=== PATIENT | female | born 1940 | race Caucasian/White ===

== ENCOUNTER → 2016-04-14 | Outpatient (CLI) | payer OTHER ==
[~2016-04-14] MED LIST: ALLERGY RELIEF180 MG; ASPIRIN81 M2; CALCIUM 600 +1 EAC1; CENTRUM SILVER1 EAC4; CITRUCEL CAPLET1 TA1; CLONAZEPAM 0.50.5 M1; CRANBERRY TABL1 EACH; FISH OIL 1,001000 M2; FLOVENT HFA 4444 MCG; HYDROCHLOROTHIA25 M2; LEVOTHYROXINE0.2 M1; METHYLPHENIDATE10 MG; SIMVASTATIN40 MG; VESICARE 5 MG TA5 MG; VITAMINC500; ZOLOFT50 MG
== END ==
LOC: RAD 01:02
DX: Z12.31 Encounter for screening mammogram for malignant neoplasm of breast (principal)

== ENCOUNTER → 2017-04-14 | Outpatient (CLI) | payer OTHER ==
[~2017-04-14] MED LIST changes: -ALLERGY RELIEF180 MG; +ALLERGY RELIEF180 MG PO; -ASPIRIN81 M2; +ASPIRIN81 M2 PO; -CALCIUM 600 +1 EAC1; +CALCIUM 600 +1 EAC1 PO; -CENTRUM SILVER1 EAC4; +CENTRUM SILVER1 EAC4 PO; -CRANBERRY TABL1 EACH; +CRANBERRY TABL1 EACH PO; +DETROL1 MG PO; -FISH OIL 1,001000 M2; +FISH OIL 1,001000 M2 PO; -FLOVENT HFA 4444 MCG; +FLOVENT HFA 4444 MCG INH; -SIMVASTATIN40 MG; +SIMVASTATIN40 MG PO; +SYNTHROID50 MCG PO; -VITAMINC500; +VITAMINC500 PO; -ZOLOFT50 MG; +ZOLOFT50 MG PO
== END ==
LOC: RAD 03:42
DX: Z12.31 Encounter for screening mammogram for malignant neoplasm of breast (principal)

== ENCOUNTER 2017-06-26 09:39 | Outpatient (CLI) | payer OTHER ==
[~2017-06-26] VITALS: Ht 154.9 cm; Wt 73.5 kg
--- NOTE | ~2017-06-26 | D ---
[facility] [place] [address] DISCHARGE SUMMARY Name: NEELAM MCFARLAND Room #: [facility]ITAL[facility]ink[facility]#: [id number] Admission: 06/26/17 Attend Phys: Mainor Navarro MD Discharge: 06/27/17 Date of : 38 Report #: [id number] THIS REPORT FOR: //name// CC: SAM RAY FAM unknown [facility] DATE OF SERVICE: 06/27/2017 HOSPITAL COURSE: The patient is a 77-year-old female, generally followed by Dr. Navarro. She was admitted yesterday for a pacemaker placement, which was a [employer] dual chamber. She is in mild nonischemic cardiomyopathy, PVC, right bundle branch block with concordance and significant burden of PVCs, hypertension and diabetes. She subsequently underwent pacemaker placement, which was a [employer] dual chamber. Normal device function normal, no programming changes, no episodes were noted. It was interrogated just now by the device company. We are awaiting the chest x-ray. She is up and ambulating. Her arm is in a splint and she will follow the post-pacemaker protocol, minimal usage of the left upper extremity, nothing above the head. She has followup on 07/01/2017 in the office for wound check and pacemaker interrogation. She is to call with any issues. DISCHARGE DIAGNOSES: 1. Sick sinus syndrome. Permanent pacemaker placement, dual chamber [employer] device, appropriately functioning. 2. Mild cardiomyopathy. 3. Hypertension. 4. Diabetes. We will review once the chest x-ray is obtained. There is no evidence of pneumothorax. Okay to discharge. <ELECTRONICALLY SIGNED> By: Marty Heredia MD, FACC 07/07/17 1302 [id number] Marty Heredia MD, FACC /nt
--- NOTE | ~2017-06-26 | P ---
[facility] [place] [address] PROCEDURE REPORT Name: NEELAM MCFARLAND Room #: [facility] [id number] Admission: 06/26/17 Attend Phys: Mainor Navarro MD Discharge: 06/27/17 Date of : 38 Report #: [id number] THIS REPORT FOR: //name// CC: SAM RAY FAM unknown Mainor Gaffney DATE OF SERVICE: 06/26/2017 PROCEDURE PERFORMED: Pacemaker implantation. PREOPERATIVE DIAGNOSIS: Symptomatic bradycardia. POSTOPERATIVE DIAGNOSIS: Symptomatic bradycardia. HISTORY OF PRESENT ILLNESS: The patient is a 77-year-old with history of a nonischemic cardiomyopathy and symptomatic PVCs, who has been on beta blockers and amiodarone therapy, who now has sick sinus syndrome with symptomatic bradycardia and sinus pauses. She requires continuation of beta blockers and amiodarone for her cardiomyopathy and PVCs and therefore is here for dual chamber pacemaker implantation. ANESTHESIA: The patient underwent MAC anesthesia with no anesthesia related complications. PROCEDURE: The patient underwent informed consent where we discussed the details of the procedure including the risks, which include, but not limited to bleeding, infection, vascular damage, cardiac perforation and pneumothorax. She understood these risks and is willing to proceed. As such, she was brought to the EP laboratory in a fasting and sedated state and prepped and draped in a sterile fashion. She underwent a venography showing patency of the left axillary vein and received IV antibiotics prior to initiation of the procedure. Next, I injected lidocaine below the level of the left clavicle, incision was made and a pocket was created over the prepectoral fascia and access was obtained twice to the left axillary vein using the extrathoracic approach with the sheaths positioned using the modified Seldinger technique. Next, leads were positioned to the right ventricular apex and into the right atrial appendage, both with adequate pacing and sensing thresholds. The leads were sutured to the prepectoral fascia and the device was connected. The pocket was irrigated with vancomycin and it was then closed in 3 layers using 2-0 for the deep layer, 3-0 for the middle layer and 4-0 for the subcuticular layer. Steri-Strips and dressing were applied. The patient awoke neurologically and hemodynamically intact with no complications and no significant bleeding. The implanted pacemaker was a [employer] model #FN8733, serial #[id number]. [address] [address] PROCEDURE REPORT Name: NEELAM MCFARLAND Room #: DEP AIDE Soto#: [id number] Admission: 06/26/17 Attend Phys: Mainor Navarro MD Discharge: 06/27/17 Date of : 38 Report #: [id number] The atrial lead was a [employer], model #2088TC, 52 cm, serial #[id number]. This lead demonstrated a P-wave of 3.6 millivolts, pacing impedance of 450 ohms, the pacing threshold of 1.25 volts at 0.4 milliseconds. The RV lead was a [employer] model #2088TC, 58 cm, serial #[id number]. This lead demonstrated an R-wave of 8.7 millivolts, pacing impedance of 580 ohms and a pacing threshold of 0.75 volts at 0.4 milliseconds. The device was programmed to the DDDR 60-130 mode. CONCLUSIONS: 1. Successful dual-chamber pacemaker implantation. 2. Satisfactory atrial and ventricular pacing and sensing thresholds. <ELECTRONICALLY SIGNED> By: Mainor Navarro MD 07/09/17 1140 [id number] Mainor Navarro MD /nt
[~2017-06-26 09:39] MED LIST changes: -DETROL1 MG PO; -SYNTHROID50 MCG PO
[2017-06-26 10:59] LABS: HEMATOCRIT 40.8 % (37.0-47.0); HEMOGLOBIN 13.5 gm/dL (12.0-15.0); MCH 29.2 pg (26.0-34.0); MCV 88.4 fL (80.0-100.0); RBC 4.61 mil/uL (4.20-5.00); RDW 15.1 % (10.5-14.5); WBC 7.3 thou/uL (4.0-11.0)
[2017-06-26 11:15] LABS: APTT 26.1 Seconds (24.5-32.8); CALCIUM 9.8 mg/dL (8.5-10.1); INR 1.1; PROTIME 10.9 Seconds (9.3-11.4)
[2017-06-26 11:19] LABS: ALBUMIN 3.9 g/dL (3.4-5.0); TOTAL BILIRUBIN 0.7 mg/dL (<0.1-1.0); TOTAL PROTEIN 7.3 g/dL (6.4-8.2)
[2017-06-26] MEDS ORDERED: SYNTHROID50 MCG PO (11:52)
[2017-06-26] MEDS ORDERED: DETROL1 MG PO (11:55)
[2017-06-26 11:56] VITALS: BP 169/69
[2017-06-26 21:37] VITALS: BP 157/78
[2017-06-27 00:41] VITALS: BP 150/76
[2017-06-27 04:38] VITALS: BP 133/67
[2017-06-27 07:18] VITALS: BP 97/54
[2017-06-27 09:50] VITALS: BP 97/54
== END 2017-06-27 10:53 | disposition home or self-care (01) ==
LOC: CATH 09:39 → 2N 09:39 → CATH 10:34 → 2N 17:50 → CATH 06-27 10:53
PROVIDERS: Internal Medicine Cardiovascular Disease
DX: I49.5 Sick sinus syndrome (principal); I10 Essential (primary) hypertension; E78.5 Hyperlipidemia, unspecified; J45.909 Unspecified asthma, uncomplicated; Z90.710 Acquired absence of both cervix and uterus; Z90.49 Acquired absence of other specified parts of digestive tract; Z98.41 Cataract extraction status, right eye; Z98.42 Cataract extraction status, left eye; Z96.1 Presence of intraocular lens; Z98.890 Other specified postprocedural states; Z88.0 Allergy status to penicillin; Z88.2 Allergy status to sulfonamides; Z79.82 Long term (current) use of aspirin; Z79.01 Long term (current) use of anticoagulants
CPT/HCPCS: 10081; 62110; 62900; 70005

== ENCOUNTER → 2018-04-15 | Outpatient (CLI) | payer OTHER ==
[~2018-04-15] MED LIST changes: +DETROL1 MG PO; +SYNTHROID50 MCG PO
== END ==
LOC: RAD 13:30
DX: Z12.31 Encounter for screening mammogram for malignant neoplasm of breast (principal)

== ENCOUNTER → 2019-06-06 | Outpatient (CLI) | payer OTHER | LOC: BC 11:20 | DX: Z12.31 Encounter for screening mammogram for malignant neoplasm of breast (principal) ==

== ENCOUNTER → 2019-10-31 | Outpatient (CLI) | payer OTHER | LOC: SJCVCIMAG 10-17 14:36 | PROVIDERS: ATTEND Internal Medicine | DX: Z45.018 Encounter for adjustment and management of other part of cardiac pacemaker (principal); I08.8 Other rheumatic multiple valve diseases; R94.31 Abnormal electrocardiogram [ECG] [EKG]; I42.0 Dilated cardiomyopathy; E78.5 Hyperlipidemia, unspecified; E11.9 Type 2 diabetes mellitus without complications; J45.909 Unspecified asthma, uncomplicated; M81.0 Age-related osteoporosis without current pathological fracture; Z79.82 Long term (current) use of aspirin; Z79.899 Other long term (current) drug therapy; Z82.49 Family history of ischemic heart disease and other diseases of the circulatory system; Z79.4 Long term (current) use of insulin ==

== ENCOUNTER → 2019-11-08 | Outpatient (CLI) | payer OTHER ==
[2019-11-08 13:19] LABS: CALCIUM 9.6 mg/dL (8.5-10.1); CREATININE 0.9 mg/dL (0.6-1.0); POTASSIUM 3.7 mmol/L (3.5-5.1)
== END ==
LOC: CAT 11:53
PROVIDERS: ATTEND Nurse Practitioner
DX: I25.10 Atherosclerotic heart disease of native coronary artery without angina pectoris (principal); K57.30 Diverticulosis of large intestine without perforation or abscess without bleeding; Z95.0 Presence of cardiac pacemaker

== ENCOUNTER → 2020-01-02 | Outpatient (CLI) | payer OTHER | LOC: CAT 11:34 | PROVIDERS: ATTEND Family Medicine | DX: M51.27 Other intervertebral disc displacement, lumbosacral region (principal); M48.061 Spinal stenosis, lumbar region without neurogenic claudication; M25.78 Osteophyte, vertebrae; M47.816 Spondylosis without myelopathy or radiculopathy, lumbar region ==

== ENCOUNTER → 2020-03-02 | Outpatient (CLI) | payer OTHER ==
[~2020-03-02] VITALS: Ht 160 cm; Wt 59.9 kg
[~2020-03-02] MED LIST changes: +COREG3.125 MG PO; +LEVOTHYROXINE150 MC1 PO; +PACERONE 200 M200 M1 PO; +ROSUVASTATIN CA20 MG PO; -SYNTHROID50 MCG PO; +TYLENOL325 M1 PO
[2020-03-02 10:39] VITALS: BP 142/71
--- NOTE | 2020-03-02 11:04 | NUR ---
Pain Clinic Assessment: 1. History of Osteoarthritis: DENIES History of Rheumatoid Arthritis: DENIES 2. Height: 5 ft. 3 in. 160.0 cm. Weight: 132.0 lb. oz. 59.875 kg. Patient's BMI: 23.4 3. Vital Signs: BP: 142/71 Pulse: 74 Resp: 16 Temp: 02 Sat: 97 ECG Mon: 4. Pain Intensity: 6 5. Fall Risk: Dizziness: Y Needs help standing or walking: Y Fallen in the last 3 months: Y Fall risk comments: 6. Patient on Blood Thinner: None 7. History of Hypertension: Y 8. Opioid Therapy greater than 6 weeks: N Opiate Contract Signed: 9. Risk Assessment Tool Provided: 10. Functional Assessment Tool: 11. Recreational Drug Use: Never Drug Type: Tobacco Use: Never Smoker Tobacco Type: Amount or Packs/day: How Many Years: Alcohol Use: No Frequency: Quant:
== END | disposition home or self-care (01) ==
LOC: PAIN 06:50
PROVIDERS: ATTEND Anesthesiology Pain Medicine
DX: M54.16 Radiculopathy, lumbar region (principal); M48.061 Spinal stenosis, lumbar region without neurogenic claudication; I10 Essential (primary) hypertension; E11.9 Type 2 diabetes mellitus without complications; E78.5 Hyperlipidemia, unspecified; J45.909 Unspecified asthma, uncomplicated; M81.0 Age-related osteoporosis without current pathological fracture; Z98.890 Other specified postprocedural states; Z79.899 Other long term (current) drug therapy; Z90.710 Acquired absence of both cervix and uterus; Z95.0 Presence of cardiac pacemaker; Z90.49 Acquired absence of other specified parts of digestive tract; Z88.0 Allergy status to penicillin; Z88.2 Allergy status to sulfonamides

== ENCOUNTER → 2020-05-09 | Outpatient (CLI) | payer OTHER | LOC: SJCVC 13:22 | PROVIDERS: ATTEND Internal Medicine | DX: R94.31 Abnormal electrocardiogram [ECG] [EKG] (principal); I42.0 Dilated cardiomyopathy; I49.3 Ventricular premature depolarization; E78.5 Hyperlipidemia, unspecified; E11.9 Type 2 diabetes mellitus without complications; R00.2 Palpitations; M81.0 Age-related osteoporosis without current pathological fracture; Z90.49 Acquired absence of other specified parts of digestive tract; Z90.710 Acquired absence of both cervix and uterus; Z95.0 Presence of cardiac pacemaker; Z88.8 Allergy status to other drugs, medicaments and biological substances; Z79.4 Long term (current) use of insulin; Z79.82 Long term (current) use of aspirin; Z79.899 Other long term (current) drug therapy; Z82.49 Family history of ischemic heart disease and other diseases of the circulatory system ==

== ENCOUNTER → 2020-05-18 | Outpatient (CLI) | payer OTHER ==
[~2020-05-18] VITALS: Ht 160 cm; Wt 59.9 kg
[~2020-05-18] MED LIST changes: +NEURONTIN 300M300 M2 PO
[2020-05-18 12:56] VITALS: BP 155/84
--- NOTE | 2020-05-18 13:04 | NUR ---
Pain Clinic Assessment: 1. History of Osteoarthritis: DENIES History of Rheumatoid Arthritis: DENIES 2. Height: 5 ft. 3 in. 160.0 cm. Weight: 132.0 lb. oz. 59.875 kg. Patient's BMI: 23.4 3. Vital Signs: BP: 155/84 Pulse: 72 Resp: 16 Temp: 02 Sat: 99 ECG Mon: 4. Pain Intensity: 4-5 5. Fall Risk: Dizziness: Y Needs help standing or walking: Y Fallen in the last 3 months: Y Fall risk comments: HAS HAD OVER 6 FALLS IN A WEEK DUE TO SYNCOPE. 6. Patient on Blood Thinner: None 7. History of Hypertension: Y 8. Opioid Therapy greater than 6 weeks: N Opiate Contract Signed: 9. Risk Assessment Tool Provided: 2-LOW RISK 10. Functional Assessment Tool: 11. Recreational Drug Use: Never Drug Type: Tobacco Use: Never Smoker Tobacco Type: Amount or Packs/day: How Many Years: Alcohol Use: No Frequency: Quant:
== END ==
LOC: PAIN 05-11 09:34
PROVIDERS: ATTEND Anesthesiology Pain Medicine
DX: M54.16 Radiculopathy, lumbar region (principal); J45.909 Unspecified asthma, uncomplicated; E78.5 Hyperlipidemia, unspecified; I10 Essential (primary) hypertension; M81.0 Age-related osteoporosis without current pathological fracture; I49.3 Ventricular premature depolarization; Z95.0 Presence of cardiac pacemaker

== ENCOUNTER → 2020-06-25 | Outpatient (CLI) | payer OTHER | LOC: BC 12:51 | PROVIDERS: ATTEND Family Medicine | DX: Z12.31 Encounter for screening mammogram for malignant neoplasm of breast (principal) ==

== ENCOUNTER → 2020-11-06 | Outpatient (CLI) | payer OTHER ==
[~2020-11-06] MED LIST changes: +APAP W/CODEINE1 TA2 PO
== END ==
LOC: SJCVCIMAG 09:35
PROVIDERS: ATTEND Internal Medicine
DX: I08.0 Rheumatic disorders of both mitral and aortic valves (principal); I42.0 Dilated cardiomyopathy; I45.10 Unspecified right bundle-branch block; R94.31 Abnormal electrocardiogram [ECG] [EKG]; I11.9 Hypertensive heart disease without heart failure; I77.89 Other specified disorders of arteries and arterioles; I49.3 Ventricular premature depolarization; E78.5 Hyperlipidemia, unspecified; Z79.4 Long term (current) use of insulin; R00.2 Palpitations; M81.0 Age-related osteoporosis without current pathological fracture; Z90.49 Acquired absence of other specified parts of digestive tract; Z90.710 Acquired absence of both cervix and uterus; Z95.0 Presence of cardiac pacemaker; Z88.8 Allergy status to other drugs, medicaments and biological substances; E11.9 Type 2 diabetes mellitus without complications; Z79.82 Long term (current) use of aspirin; Z79.899 Other long term (current) drug therapy; Z82.49 Family history of ischemic heart disease and other diseases of the circulatory system

== ENCOUNTER → 2021-03-08 | Outpatient (CLI) | payer OTHER | LOC: ULTRA 08:44 | PROVIDERS: ATTEND Family Medicine | DX: R10.13 Epigastric pain (principal); Z90.49 Acquired absence of other specified parts of digestive tract ==

== ENCOUNTER → 2021-05-14 | Outpatient (CLI) | payer OTHER | LOC: SJCVC 13:04 | PROVIDERS: ATTEND Internal Medicine | DX: R94.31 Abnormal electrocardiogram [ECG] [EKG] (principal); I42.0 Dilated cardiomyopathy; I49.3 Ventricular premature depolarization; E78.5 Hyperlipidemia, unspecified; E11.9 Type 2 diabetes mellitus without complications; I10 Essential (primary) hypertension; Z79.4 Long term (current) use of insulin; Z95.0 Presence of cardiac pacemaker; Z79.899 Other long term (current) drug therapy; Z79.82 Long term (current) use of aspirin; Z72.89 Other problems related to lifestyle; Z88.0 Allergy status to penicillin; Z88.8 Allergy status to other drugs, medicaments and biological substances; Z88.2 Allergy status to sulfonamides; Z82.49 Family history of ischemic heart disease and other diseases of the circulatory system ==